=== PATIENT | female | born 1985 | race Caucasian/White ===

== ENCOUNTER 2016-06-15 17:38 | Emergency (ER) | payer OTHER ==
[2016-06-15 17:42] VITALS: BP 111/75; PULSE 71; TEMP 98.7; BMI 23.8
--- NOTE | 2016-06-15 18:24 | PDOC ---
History of Present Illness - General Chief Complaint: Wound Stated Complaint: BITE Time Seen by Provider: 06/15/16 18:19 History Source: Patient Exam Limitations: No Limitations - History of Present Illness Initial Comments: 06/15/16 18:24 31 yr female with insect bite to right foot noticed this am c/o itchyness. Timing/Duration: reports: just prior to arrival Past History - Past Medical History Allergies/Adverse Reactions: Allergies Allergy/AdvReac Type Severity Reaction Status Date / Time codeine [Codeine] Allergy Mild Hives Verified 06/15/16 17:42 Penicillins Allergy Mild Rash Verified 06/15/16 17:42 peanut Allergy Itching Verified 06/15/16 17:42 Home Medications: Ambulatory Orders Mupirocin Ointment [Bactroban 2% Ointment -] 1 applic TP TID #1 tube 06/15/16 - Reproductive History (#): 4 Para: 3 Cervical CA: No Dysfunctional Uterine Bleeding: No Ectopic : No Endometrial CA: No Polycystic Ovaries: No Therapeutic (s) & number: No Tubal Ligation: No Spontaneous : 1 - Immunization History Immunization Up to Date: Yes - Psycho/Social/Smoking Cessation Hx Anxiety: No Suicidal Ideation: No Smoking Status: No Smoking History: Never smoked Have you smoked in the past 12 months: No Number of Cigarettes Smoked Daily: 0 Information on smoking cessation initiated: No Hx Alcohol Use: No Drug/Substance Use Hx: No Substance Use Type: None Review of Systems - Review of Systems Able to Perform ROS?: Yes Is the patient limited Ukrainian proficient: No Constitutional: No: Symptoms Reported HEENTM: No: Symptoms Reported Respiratory: No: Symptoms reported Cardiac (ROS): No: Symptoms Reported ABD/GI: No: Symptoms Reported : No: Symptoms Reported Musculoskeletal: No: Symptoms Reported Integumentary: Yes: See HPI, Rash (right foot ) *Physical Exam - Vital Signs Last Vital Signs Temp Pulse Resp BP Pulse Ox 98.7 F 71 18 111/75 99 06/15/16 17:39 06/15/16 17:39 06/15/16 17:39 06/15/16 17:39 06/15/16 17:39 - Physical Exam General Appearance: Yes: Nourished, Appropriately Dressed HEENT: positive: EOMI, JANICE, Normal ENT Inspection Neck: positive: Supple Respiratory/Chest: positive: Lungs Clear, Normal Breath Sounds Cardiovascular: positive: Regular Rhythm, Regular Rate Musculoskeletal: positive: Normal Inspection Extremity: positive: Normal Capillary Refill, Normal Inspection, Normal Range of Motion Integumentary: positive: Normal Color, Dry, Warm, Rash (top of right foot with 1cm area of redness with vesicular lesions, blanching ) Neurologic: positive: Fully Oriented, Alert, Normal Mood/Affect, Normal Response , Motor Strength 5/5 Medical Decision Making - Medical Decision Making 06/15/16 18:26 cc: itchy rash to top of right foot with vesicular lesions 0.5cm circular no pain or burning, no fever or other areas of rash will prescribe bactroban ointment strict follow up in 48hrs pt agrees with plan all questions asked and answered before discharge. 06/15/16 18:27 *DC/Admit/Observation/Transfer Diagnosis at time of Disposition: Insect bite Qualifiers: Encounter type: initial encounter Qualified Code(s): W57.XXXA - Bitten or stung by nonvenomous insect and other nonvenomous arthropods, initial encounter - Discharge Dispostion Disposition: HOME Condition at time of disposition: Good - Prescriptions Prescriptions: Mupirocin Ointment [Bactroban 2% Ointment -] 1 applic TP TID #1 tube - Patient Instructions Additional Instructions: apply the ointment three times a day for 3-5 days take benadryl 25-50mg by mouth for itching take motrin as directed every 6hrs elevate the ankle you can cover the area with a bandage after applying the ointment Return to ER for any worsening symptoms , fever, redness streaking up foot , hot to touch or painful
== END 2016-06-15 21:38 | disposition home or self-care (01) ==
LOC: JERFT 17:38
DX: S90.861A Insect bite (nonvenomous), right foot, initial encounter (principal); W57.XXXA Bitten or stung by nonvenomous insect and other nonvenomous arthropods, initial encounter; Y93.9 Activity, unspecified; Y92.9 Unspecified place or not applicable
CPT/HCPCS: 99281-25

== ENCOUNTER 2016-07-06 20:18 | Emergency (ER) | payer OTHER ==
[2016-07-06 20:22] VITALS: BP 140/79; PULSE 71; TEMP 97; BMI 23.8
--- NOTE | 2016-07-06 21:09 | PDOC ---
History of Present Illness - General Chief Complaint: Injury Stated Complaint: INJURY Time Seen by Provider: 07/06/16 20:36 - History of Present Illness Initial Comments: 07/06/16 21:19 Patient is a 31-year-old female no past medical history presenting to the ED today complaining of right ankle pain. Patient states that her daughter tripped over a person in the movie theater and landed on her ankle. Her ankle was pinned between her daughter and the step. She believes her ankle rolled. She rates her pain an 9 out of 10. Denies any numbness or tingling in the foot, or weakness. States that her right ankle is swollen. She has no other complaints at this time. Denies falling, head trauma, LOC, fever, chills, nausea, vomiting , diarrhea. Past History - Past Medical History Allergies/Adverse Reactions: Allergies Allergy/AdvReac Type Severity Reaction Status Date / Time codeine [Codeine] Allergy Mild Hives Verified 07/06/16 20:21 Penicillins Allergy Mild Rash Verified 07/06/16 20:21 peanut Allergy Itching Verified 07/06/16 20:21 Home Medications: Ambulatory Orders Mupirocin Ointment [Bactroban 2% Ointment -] 1 applic TP TID #1 tube 06/15/16 Other medical history: denies - Reproductive History (#): 4 Para: 3 Cervical CA: No Dysfunctional Uterine Bleeding: No Ectopic : No Endometrial CA: No Polycystic Ovaries: No Therapeutic (s) & number: No Tubal Ligation: No Spontaneous : 1 - Immunization History Immunization Up to Date: Yes - Psycho/Social/Smoking Cessation Hx Anxiety: No Suicidal Ideation: No Smoking Status: No Smoking History: Never smoked Have you smoked in the past 12 months: No Number of Cigarettes Smoked Daily: 0 Hx Alcohol Use: No Drug/Substance Use Hx: No Substance Use Type: None *Physical Exam - Vital Signs Last Vital Signs Temp Pulse Resp BP Pulse Ox 97 F L 71 18 140/79 99 07/06/16 20:20 07/06/16 20:20 07/06/16 20:20 07/06/16 20:20 07/06/16 20:20 - Physical Exam General Appearance: Yes: Nourished, Appropriately Dressed, Mild Distress Vascular Pulses: Dorsalis-Pedis (R): 2+, Doralis-Pedis (L): 2+ Musculoskeletal: positive: Decreased Range of Motion (R ankle decreased range of motion with dorsiflexion and extension), Other (Strength 4/5 R foot, 5/5 L foot) Extremity: positive: Normal Capillary Refill, Swelling (of the R lateral malleolus), Inflammation. negative: Normal Range of Motion (R ankle decreased range of motion with dorsiflexion and extension), Calf Tenderness, Erythema Integumentary: positive: Normal Color, Dry, Warm, Swelling. negative: Bruising Neurologic: positive: trans router II-XII NML intact, Fully Oriented, Alert, Normal Mood/ Affect, Normal Response, Motor Strength 5/5 Deep Tendon Reflexes: Ankle (L): 2+, Ankle (R): 2+ Medical Decision Making - Medical Decision Making 07/06/16 21:21 Patient is a 31-year-old female no past medical history presenting to the ED today complaining of right ankle pain. Foot is neurologically intact. Given swelling and tenderness over the lateral maleollus , medial maleollus, and navicular bone; will order ankle x-ray at this time. Patient denies she is . Currently on her menstrual cycle. We'll give Tylenol for pain and reevaluate. 07/06/16 22:40 Wet read of x-rays shows no fractures. Tibia and fibula are intact. Ankle mortise is preserved. Soft tissue swelling present. Overall negative x-ray. We will discharge home at this time. Pt was given Ran wrap and Aircast for comfort. Remain nonweightbearing. Patient understands discharge instructions and all questions at this time. Advised to follow up with primary care physician and orthopedics. *DC/Admit/Observation/Transfer Diagnosis at time of Disposition: Ankle sprain Qualifiers: Encounter type: initial encounter Involved ligament of ankle: unspecified ligament Laterality: right Qualified Code(s): S93.401A - Sprain of unspecified ligament of right ankle, initial encounter - Discharge Dispostion Admit: No - Referrals Referrals: Roxy Mfcarland MD [Primary Care Provider] - Don Johnson MD [Staff Physician] - - Patient Instructions Printed Discharge Instructions: DI for Ankle Sprain Additional Instructions: You have an ankle sprain. Your x-ray today did not show any evidence of broken bones. Use crutches to rest her foot. Elevate your foot when sitting. This will help to reduce swelling. Use ibuprofen to reduce swelling and help with pain. Take this every 6 hours. Continue to ice the ankle and wear the Ran wrap. When you go back to work make sure you wear the Ran wrap and Aircast for extra support. Return to the ED if you lose sensation in her foot experienced numbness or tingling, have increased swelling, or if the pain is not managed. - Post Discharge Activity Work/School Note: Back to Work
[2016-07-06] MEDS ORDERED: ACETAMINOPHEN 325 MG TABLET (FP) PO ONE (21:24)
[2016-07-06] MEDS ORDERED: OXYCODONE/APAP 5/325MG COMBO TABLET PO ONE (21:41)
== END 2016-07-06 22:47 | disposition home or self-care (01) ==
LOC: JERFT 20:18
PROC: 2W3LX1Z Immobilization of Right Lower Extremity using Splint (ICD-10-PCS; principal; 2016-07-06)
DX: S93.401A Sprain of unspecified ligament of right ankle, initial encounter (principal); W50.0XXA Accidental hit or strike by another person, initial encounter; Y93.89 Activity, other specified; Y92.26 Movie house or cinema as the place of occurrence of the external cause; Y99.8 Other external cause status
CPT/HCPCS: 29515; 73610-TC-RT; 73630-TC-RT; 99281-25

== ENCOUNTER 2016-10-24 15:23 | Emergency (ER) | payer OTHER ==
[2016-10-24 15:33] VITALS: BP 120/73; PULSE 69; TEMP 98.1; BMI 25.4
--- NOTE | 2016-10-24 16:41 | PDOC ---
History of Present Illness - General Chief Complaint: Chest Pain Stated Complaint: CHEST PAIN Time Seen by Provider: 10/24/16 16:17 History Source: Patient Exam Limitations: No Limitations - History of Present Illness Initial Comments: 10/24/16 16:35 This is a 31yo woman with PMH of tension headaches who presents today with chest tightness and dry non-productive cough starting when she woke up this AM. She states renovations are ongoing in her apartment with a lot of particulate in the air. She denies fevers, nausea, vomiting, SOB or dizziness. She also has occipital headache c/w her usual tension headaches. She denies family history of sudden cardiac or disease at an early age. Pain P- occiput and diffuse chest/upper back Q- Throbbing R- no radiation S- 08/10 T- since waking up this morning Denies recent travel PMH- tension headaches PSH- denies Occupation- works at [employer]- denies ETOH- denies Illicits- denies Timing/Duration: reports: this morning Severity: reports: mild Possible Cause: Yes: no prior episodes Modifying Factors: worse with: activity, albuterol inhaler, albuterol nebulizer , antibiotics, coughing, lying down, oxygen, rest, other Associated Symptoms: reports: chest pain/soreness (while coughing) Past History - Travel Traveled outside of the country in the last 30 days: No Close contact w/someone who was outside of country & ill: No - Past Medical History Allergies/Adverse Reactions: Allergies Allergy/AdvReac Type Severity Reaction Status Date / Time codeine [Codeine] Allergy Mild Hives Verified 10/24/16 15:25 Penicillins Allergy Mild Rash Verified 10/24/16 15:25 peanut Allergy Itching Verified 10/24/16 15:25 Home Medications: Ambulatory Orders NK [No Known Home Medication] 10/24/16 Asthma: No Cardiac Disorders: No Hypercholesterolemia: No Thyroid Disease: No Other medical history: denies - Reproductive History (#): 4 Para: 3 Cervical CA: No Dysfunctional Uterine Bleeding: No Ectopic : No Endometrial CA: No Polycystic Ovaries: No Therapeutic (s) & number: No Tubal Ligation: No Spontaneous : 1 - Immunization History Immunization Up to Date: Yes - Psycho/Social/Smoking Cessation Hx Anxiety: No Suicidal Ideation: No Smoking Status: No Smoking History: Never smoked Have you smoked in the past 12 months: No Number of Cigarettes Smoked Daily: 0 Information on smoking cessation initiated: No Hx Alcohol Use: No Drug/Substance Use Hx: No Substance Use Type: None Respiratory Specific PMHX - Complaint Specific PMHX Angina: No Bronchitis: No Pneumonia: No Pulmonary Embolus: No TB (Tuberculosis): No Review of Systems - Review of Systems Able to Perform ROS?: Yes Is the patient limited Nauruan proficient: No Constitutional: No: Symptoms Reported HEENTM: No: Symptoms Reported Respiratory: Yes: Cough (non-productive dry starting this AM) Cardiac (ROS): No: Symptoms Reported ABD/GI: Yes: Nausea : Yes: Frequency Musculoskeletal: No: Symptoms Reported Integumentary: No: Symptoms Reported Neurological: Yes: Headache *Physical Exam - Vital Signs Last Vital Signs Temp Pulse Resp BP Pulse Ox 98.1 F 69 18 120/73 100 10/24/16 15:25 10/24/16 15:25 10/24/16 15:25 10/24/16 15:25 10/24/16 15:25 - Physical Exam General Appearance: Yes: Appropriately Dressed. No: Apparent Distress HEENT: positive: EOMI, JANICE, Normal ENT Inspection Neck: positive: Trachea midline, Supple Respiratory/Chest: positive: Lungs Clear, Normal Breath Sounds. negative: Respiratory Distress, Accessory Muscle Use Cardiovascular: positive: Regular Rhythm, Regular Rate, S1, S2. negative: Edema , JVD, Murmur Musculoskeletal: positive: Normal Inspection. negative: CVA Tenderness Extremity: positive: Normal Capillary Refill, Normal Inspection, Normal Range of Motion Integumentary: positive: Normal Color, Dry, Warm Neurologic: positive: telecommunication operator II-XII NML intact, Fully Oriented, Alert, Normal Mood/ Affect, Normal Response, Motor Strength 5/5 Heart Score/ECG Review - ECG Intrepretation Rhythm: Regular Rhythm - ECG Impressions Normal ECG: Yes Medical Decision Making - Medical Decision Making 10/24/16 16:41 This is a 31yo woman with PMH of tension headaches who presents today with chest tightness and dry non-productive cough starting when she woke up this AM. She states renovations are ongoing in her apartment with a lot of particulate in the air. She denies fevers, nausea, vomiting, SOB or dizziness. She also has occipital headache c/w her usual tension headaches. She denies family history of sudden cardiac or disease at an early age. Pt reports wheezing at home. Lungs CTAB. Speaking full sentences. Well's criteria for PE-0. Perc score -0. Patient does take low estrogen OCP. EKG- unchanged from prior EKG. She reports occasional frequency and post void urgency. Denies vaginal discharge. She has been sexually active with 1 male partner engaged in unprotected oral and vaginal sex over the past 6 months. Dx- hypersensitivity rxn to air particulate vs Neisseria PNA - urine - UA - urine cx - CXR - EKG- unchanged from previous - urine GC 10/24/16 18:16 - upreg(-) - UA- unremarkable - CXR- no acute pathology - Low likleyhood of ACS - will discharge with cx f/u *DC/Admit/Observation/Transfer Diagnosis at time of Disposition: Respiratory conditions due to unspecified external agent - Discharge Dispostion Disposition: HOME Condition at time of disposition: Stable Admit: No - Referrals Referrals: Ferdinand Head MD [Non Staff, Medical] - - Patient Instructions Additional Instructions: Get a filter for your room. Keep windows open while in the house. Keep well hydrated. Return to ER for any shortness of breath, worsening pain or any other concerns.
[2016-10-24 17:03] LABS: URINE APPEARANCE SLCLOUDY; URINE BILIRUBIN NEGATIVE (NEGATIVE); URINE BLOOD 1+ (NEGATIVE); URINE COLOR YELLOW; URINE GLUCOSE (UA) NEGATIVE (NEGATIVE); URINE KETONE NEGATIVE (NEGATIVE); URINE LEUK ESTERASE NEGATIVE (NEGATIVE); URINE NITRITE NEGATIVE (NEGATIVE); URINE PROTEIN NEGATIVE (NEGATIVE); URINE UROBILINOGEN NEGATIVE mg/dL (0.2-1.0)
[2016-10-24 17:13] LABS: URINE BACTERIA RARE /hpf (NONE SEEN); URINE MUCUS MODERATE; URINE RBC 8 /hpf (0-3); URINE WBC 2 /hpf (3-5)
--- NOTE | 2016-10-25 12:54 | EKG ---
Test Reason : Blood Pressure : / mmHG Vent. Rate : 078 BPM Atrial Rate : 078 BPM P-R Int : 148 ms QRS Dur : 068 ms QT Int : 368 ms P-R-T Axes : 048 046 026 degrees QTc Int : 419 ms NORMAL SINUS RHYTHM WITH SINUS ARRHYTHMIA NORMAL ECG Confirmed by MD YAZAN, ADDIE ([id number]) on 10/25/2016 12:54:33 PM Referred By: Confirmed By:ADDIE HAND MD
== END 2016-10-24 18:42 | disposition home or self-care (01) ==
LOC: JERFT 15:23
DX: R09.89 Other specified symptoms and signs involving the circulatory and respiratory systems (principal)
CPT/HCPCS: 36415; 71020-TC; 81003; 81015; 84703; 87086; 87491; 87591; 93005; 93010; 99281-25

== ENCOUNTER 2017-04-02 12:10 | Emergency (ER) | payer OTHER ==
[2017-04-02 12:18] VITALS: BP 117/69; PULSE 106; TEMP 98.7; BMI 24.9
--- NOTE | 2017-04-02 13:02 | PDOC ---
History of Present Illness - General Chief Complaint: Cold Symptoms Stated Complaint: BODY ACHES Time Seen by Provider: 04/02/17 12:31 History Source: Patient Exam Limitations: No Limitations - History of Present Illness Initial Comments: 04/02/17 12:59 Patient is a [32-year-old female with no significant medical history, currently on no medication , who presents emergency department for evaluation of generalized bodyaches, tactile fever, since this AM, daughter with similar.] Past Medical History: [Denies]. Allergies: No known allergies Medications: [None] Family History: Non-contributory Social History: Denies smoking, alcohol use, or IVDU Review of Systems GENERAL/CONSTITUTIONAL: [Fever and bodyaches. No weakness. No weight change.] HEAD, EYES, EARS, NOSE AND THROAT: [No change in vision. No ear pain or discharge. No sore throat. ] CARDIOVASCULAR: [No chest pain or shortness of breath.] RESPIRATORY: [No cough, wheezing, or hemoptysis.] GASTROINTESTINAL: [No nausea, vomiting, diarrhea or constipation. No rectal bleeding.] GENITOURINARY: [No dysuria, frequency, or change in urination.] MUSCULOSKELETAL: [No joint or muscle swelling or pain. No neck or back pain.] SKIN AND BREASTS: [No rash or easy bruising.] NEUROLOGIC: [No headache, vertigo, loss of consciousness, or loss of sensation.] PSYCHIATRIC: [No depression or anxiety.] ENDOCRINE: [No increased thirst. No abnormal weight change.] HEMATOLOGIC/LYMPHATIC: [No anemia, easy bleeding, or history of blood clots.] ALLERGIC/IMMUNOLOGIC: [No hives or skin allergy. No latex allergy.] Physical Exam: GENERAL: [The patient is awake, alert, and fully oriented, in no acute distress. ] HEAD: [Normal with no signs of trauma.] EYES: [Pupils equal, round and reactive to light, extraocular movements intact, sclera anicteric, conjunctiva clear.] ENT: [Ears normal, nares patent, oropharynx clear without exudates. Moist mucous membranes. No uvula deviation] NECK: [Normal range of motion, supple without lymphadenopathy, JVD, or masses.] LUNGS: [Breath sounds equal, clear to auscultation bilaterally. No wheezes, and no crackles.] HEART: [Regular rate and rhythm, normal S1 and S2 without murmur, rub or gallop. ] ABDOMEN: [Soft, nontender, normoactive bowel sounds. No guarding, no rebound. No masses. No bruising or abrasions] RECTAL : [Guaiac negative, normal rectal tone.] MUSCULOSKELETAL: [Normal range of motion, no edema. No clubbing or cyanosis. No cords, erythema, or tenderness. No CVA Tenderness with fist.] NEUROLOGICAL: [Cranial nerves II through XII grossly intact. Normal speech, normal gait.] PSYCH: [Normal mood, normal affect.] SKIN: [Warm, Dry, normal turgor, no rashes or lesions noted.] 04/02/17 13:01 Past History - Past Medical History Allergies/Adverse Reactions: Allergies Allergy/AdvReac Type Severity Reaction Status Date / Time codeine [Codeine] Allergy Mild Hives Verified 04/02/17 12:14 Penicillins Allergy Mild Rash Verified 04/02/17 12:14 peanut Allergy Itching Verified 04/02/17 12:14 Home Medications: Ambulatory Orders Oseltamivir Phosphate [Tamiflu -] 75 mg PO BID #10 capsule 04/02/17 Asthma: No Cardiac Disorders: No COPD: No DVT: No Hypercholesterolemia: No Thyroid Disease: No - Reproductive History (#): 4 Para: 3 Cervical CA: No Dysfunctional Uterine Bleeding: No Ectopic : No Endometrial CA: No Polycystic Ovaries: No Therapeutic (s) & number: No Tubal Ligation: No Spontaneous : 1 - Immunization History Immunization Up to Date: Yes - Suicide/Smoking/Psychosocial Hx Smoking Status: No Smoking History: Never smoked Have you smoked in the past 12 months: No Number of Cigarettes Smoked Daily: 0 Information on smoking cessation initiated: No Hx Alcohol Use: No Drug/Substance Use Hx: No Substance Use Type: None *Physical Exam - Vital Signs Last Vital Signs Temp Pulse Resp BP Pulse Ox 98.7 F 106 H 17 117/69 98 04/02/17 12:15 04/02/17 12:15 04/02/17 12:15 04/02/17 12:15 04/02/17 12:15 Medical Decision Making - Medical Decision Making 04/02/17 13:00 A/P: Patient with influenza-type illness rapid influenza sent 04/02/17 13:01 04/02/17 13:31 Rapid influenza is negative however patient with headache now, bodyaches, daughter is influenza positive in emergency Department with her currently. I will discharge patient on Tamiflu Tylenol for headache and fever *DC/Admit/Observation/Transfer Diagnosis at time of Disposition: Exposure to influenza - Discharge Dispostion Disposition: HOME Condition at time of disposition: Stable Admit: No - Prescriptions Prescriptions: Oseltamivir Phosphate [Tamiflu -] 75 mg PO BID #10 capsule - Referrals Referrals: Ferdinand Head MD [Primary Care Provider] - - Patient Instructions Printed Discharge Instructions: Influenza (Alternative Therapy) Additional Instructions: Increase fluids to prevent dehydration Tylenol for headache Motrin for fever greater than 101.0 Please followup with primary care DrYoandy in 3 days if symptoms persist Return to emergency department any increased cough, fever, inability to drink or other concerns - Post Discharge Activity Forms/Work/School Notes: Back to Work
[2017-04-02] MEDS ORDERED: ACETAMINOPHEN 500 MG TABLET (FP) PO ONE (13:30)
[2017-04-02] MEDS ORDERED: ACETAMINOPHEN 500 MG TABLET (FP) ONE (13:33)
== END 2017-04-02 13:42 | disposition home or self-care (01) ==
LOC: JERFT 12:10
DX: Z20.89 Contact with and (suspected) exposure to other communicable diseases (principal)
CPT/HCPCS: 87804; 99281-25

== ENCOUNTER 2017-04-06 09:14 | Emergency (ER) | payer OTHER ==
[2017-04-06 09:40] VITALS: BP 100/65; PULSE 107; TEMP 99.4; BMI 24.9
[2017-04-06] MEDS ORDERED: IBUPROFEN 600 MG TABLET (FP) PO ONE ×2 (10:20→10:21)
[2017-04-06] MEDS ORDERED: ALBUTEROL SO4 2.5/IPRATROPIUM 0.5 INH SOL 3 ML VIAL.NEB. NEB ONE ×2 (10:20→10:21)
--- NOTE | 2017-04-06 10:36 | PDOC ---
History of Present Illness - General Chief Complaint: Respiratory Stated Complaint: COUGH, CHEST PAIN Time Seen by Provider: 04/06/17 10:09 History Source: Patient Exam Limitations: No Limitations - History of Present Illness Initial Comments: 04/06/17 10:31 Patient is a [32-year-old female, with fever, moist productive cough, body aches , headache. Daughter has influenza B.] Past Medical History: [Denies]. Allergies: Codeine, PCN, Peanuts Medications: [None] Family History: Non-contributory Social History: Denies smoking, alcohol use, or IVDU Review of Systems GENERAL/CONSTITUTIONAL: [Fever And bodyaches. No weakness. No weight change.] HEAD, EYES, EARS, NOSE AND THROAT: [No change in vision. No ear pain or discharge. No sore throat. ] CARDIOVASCULAR: [No chest pain or shortness of breath.] RESPIRATORY: [Moist productive No cough, no wheezing, or hemoptysis.] GASTROINTESTINAL: [No nausea, vomiting, diarrhea or constipation. No rectal bleeding.] GENITOURINARY: [No dysuria, frequency, or change in urination.] MUSCULOSKELETAL: [No joint or muscle swelling or pain. No neck or back pain. Generalized musculoskeletal pain] SKIN : [No rash or easy bruising.] NEUROLOGIC: [No headache, vertigo, loss of consciousness, or loss of sensation.] ENDOCRINE: [No increased thirst. No abnormal weight change.] HEMATOLOGIC/LYMPHATIC: [No anemia, easy bleeding, or history of blood clots.] ALLERGIC/IMMUNOLOGIC: [No hives or skin allergy. No latex allergy.] Physical Exam: GENERAL: [The patient is awake, alert, and fully oriented, in no acute distress. ] EYES: [Pupils equal, round and reactive to light, extraocular movements intact, sclera anicteric, conjunctiva clear.] ENT: [Ears normal, nares patent, oropharynx clear without exudates. Moist mucous membranes. No uvula deviation] NECK: [Normal range of motion, supple without lymphadenopathy, JVD, or masses.] LUNGS: [Rhonchi bilaterally with no wheezing, bronchospasm] HEART: [Regular rate and rhythm, normal S1 and S2 without murmur, rub or gallop. ] ABDOMEN: [Soft, nontender, normoactive bowel sounds. No guarding, no rebound. No masses. No bruising or abrasions] MUSCULOSKELETAL: [Normal range of motion, no edema. No clubbing or cyanosis. No cords, erythema, or tenderness. No CVA Tenderness with fist.] NEUROLOGICAL: [Cranial nerves II through XII grossly intact. Normal speech, normal gait.] SKIN: [Warm, Dry, normal turgor, no rashes or lesions noted.] 04/06/17 15:54 Past History - Past Medical History Allergies/Adverse Reactions: Allergies Allergy/AdvReac Type Severity Reaction Status Date / Time codeine [Codeine] Allergy Mild Hives Verified 04/06/17 09:36 Penicillins Allergy Mild Rash Verified 04/06/17 09:36 peanut Allergy Itching Verified 04/06/17 09:36 Home Medications: Ambulatory Orders Albuterol Sulfate Inhaler - [Ventolin HFA Inhaler -] 1 - 2 inh PO Q4H #1 inhaler 04/06/17 Azithromycin [Zithromax 250mg Tablets -] 250 mg PO UTDICT #6 tab 04/06/17 Oseltamivir Phosphate [Tamiflu -] 75 mg PO BID #10 capsule 04/06/17 Asthma: No Cardiac Disorders: No COPD: No DVT: No Hypercholesterolemia: No Thyroid Disease: No - Reproductive History (#): 4 Para: 3 Cervical CA: No Dysfunctional Uterine Bleeding: No Ectopic : No Endometrial CA: No Polycystic Ovaries: No Therapeutic (s) & number: No Tubal Ligation: No Spontaneous : 1 - Immunization History Immunization Up to Date: No - Suicide/Smoking/Psychosocial Hx Smoking Status: No Smoking History: Never smoked Have you smoked in the past 12 months: No Number of Cigarettes Smoked Daily: 0 Hx Alcohol Use: No Drug/Substance Use Hx: No Substance Use Type: None Respiratory Specific PMHX - Complaint Specific PMHX Angina: No Bronchitis: No Pneumonia: No Pulmonary Embolus: No TB (Tuberculosis): No *Physical Exam - Vital Signs Last Vital Signs Temp Pulse Resp BP Pulse Ox 99.4 F 107 H 20 100/65 98 04/06/17 09:37 04/06/17 09:37 04/06/17 09:37 04/06/17 09:37 04/06/17 09:37 ED Treatment Course - Medications Given in the ED: ED Medications Discontinued Medications Generic Name Dose Route Start Last Admin Trade Name Freq PRN Reason Stop Dose Admin Albuterol/Ipratropium 1 amp 04/06/17 10:20 04/06/17 10:26 Duoneb - NEB 04/06/17 10:21 1 amp ONCE ONE Administration Ibuprofen 600 mg 04/06/17 10:20 04/06/17 10:26 Motrin - PO 04/06/17 10:21 600 mg ONCE ONE Administration Medical Decision Making - Medical Decision Making 04/06/17 10:36 A/P: Patient with clinical signs of influenza daughter with influenza B patient with moist productive cough I will discharge patient home on Tamiflu and azithromycin with albuterol inhaler for bronchospasm. Follow-up with PMD. *DC/Admit/Observation/Transfer Diagnosis at time of Disposition: Influenza B - Discharge Dispostion Disposition: HOME Condition at time of disposition: Stable Admit: No - Prescriptions Prescriptions: Albuterol Sulfate Inhaler - [Ventolin HFA Inhaler -] 1 - 2 inh PO Q4H #1 inhaler Azithromycin [Zithromax 250mg Tablets -] 250 mg PO UTDICT #6 tab Oseltamivir Phosphate [Tamiflu -] 75 mg PO BID #10 capsule - Referrals Referrals: Ferdinand Head MD [Primary Care Provider] - - Patient Instructions Printed Discharge Instructions: Influenza Additional Instructions: You have been diagnosed with influenza b. Please take the medication as directed. You are contagious. Please attempt to avoid contact of multiple individuals as this will cause the infection to spread. Return to emergency room if shortness of breath, wheezing, fever greater than 101, chest pain, or fainting occurs. - Post Discharge Activity Forms/Work/School Notes: Back to Work
== END 2017-04-06 10:42 | disposition home or self-care (01) ==
LOC: JERFT 09:14
PROC: 3E0F7GC Introduction of Other Therapeutic Substance into Respiratory Tract, Via Natural or Artificial Opening (ICD-10-PCS; principal; 2017-04-06)
DX: J10.1 Influenza due to other identified influenza virus with other respiratory manifestations (principal)
CPT/HCPCS: 94640; 99281-25